=== PATIENT | male | born 1960 | race Caucasian/White ===

== ENCOUNTER 2016-12-02 16:18 | Emergency (ER) | payer OTHER ==
[~2016-12-02] VITALS: Ht 177.8 cm; Wt 101.6 kg
[2016-12-02 16:38] VITALS: BP_SYST 130
[2016-12-02 19:05] VITALS: BP_SYST 126
== END 2016-12-02 19:05 | disposition home or self-care (01) ==
LOC: SED 16:18
DX: S43.401A Unspecified sprain of right shoulder joint, initial encounter (principal); X50.9XXA Other and unspecified overexertion or strenuous movements or postures, initial encounter; Y93.89 Activity, other specified; Y92.89 Other specified places as the place of occurrence of the external cause; Y99.8 Other external cause status
CPT/HCPCS: 73030; 99284